=== PATIENT | female | born 1995 | race African-American/Black ===

== ENCOUNTER 2018-05-31 13:46 | Emergency (ER) | payer OTHER ==
[2018-05-31] MEDS: METOCLOPRAMIDE INJ 10MG/2ML VIAL (J2765) IV (16:09)
[2018-05-31] MEDS: NS 500 ML IV (16:09)
[2018-05-31] MEDS: DICYCLOMINE 10 MG CAP PO (16:16)
[2018-05-31] MEDS: GASTROGRAFIN SOLUTION 30ML PO ×2 (16:17→16:50)
[2018-05-31 16:23] LABS: BASO % 0.5 % (0.0-1.0); EOS # 0.1 10^3/uL (0.0-0.50); EOS % 1.1 % (0.0-3.0); HEMATOCRIT 37.7 % (36.0-47.0); HEMOGLOBIN 12.3 g/dl (12.0-15.5); IMMATURE GRANULOCYTE % 0.3 % (0-3.0); LYMPH # 2.1 10^3/uL (1.5-6.5); LYMPH % 27.6 % (24.0-44.0); MEAN CORPUSCULAR HEMOGLOBIN 25.2 pg (27.0-33.0); MEAN CORPUSCULAR HGB CONC 32.6 g/dl (32.0-36.5); MEAN CORPUSCULAR VOLUME 77.3 fl (80.0-96.0); MONO # 0.5 10^3/uL (0.0-0.8); MONO % 6.4 % (0.0-5.0); NEUTROPHILS # 4.9 10^3/uL (1.8-7.7); NEUTROPHILS % 64.1 % (36.0-66.0); PLATELET COUNT, AUTOMATED 240 10^3/uL (150-450); RED BLOOD COUNT 4.88 10^6/uL (4.00-5.40); RED CELL DISTRIBUTION WIDTH 15.7 % (11.5-14.5); WHITE BLOOD COUNT 7.6 10^3/uL (4.0-10.0)
[2018-05-31 16:32] LABS: APPEARANCE, URINE CLEAR (CLEAR); BACTERIA, URINE AUTO NEGATIVE (NEGATIVE); BILIRUBIN, URINE AUTO NEGATIVE (NEGATIVE); BLOOD, URINE BLOOD NEGATIVE (NEGATIVE); COLOR, URINE YELLOW (YELLOW); GLUCOSE, URINE (UA) AUTO NEGATIVE (NEGATIVE); KETONE, URINE AUTO NEGATIVE (NEGATIVE); LEUKOCYTE ESTERASE, URINE AUTO NEGATIVE (NEGATIVE); MUCUS, URINE SMALL (NEGATIVE); NITRITE, URINE AUTO NEGATIVE (NEGATIVE); PROTEIN, URINE AUTO NEGATIVE (NEGATIVE); RBC, URINE AUTO 1 /HPF (0-3); SPECIFIC GRAVITY URINE AUTO 1.012 (1.002-1.035); SQUAMOUS EPITHELIAL CELL UR AU 1 /HPF (0-6); UROBILINOGEN, URINE AUTO 0.2 mg/dL (0.0-2.0); WBC, URINE AUTO 1 /HPF (0-3)
[2018-05-31 16:54] LABS: ALBUMIN 3.7 GM/DL (3.2-5.2); ALBUMIN/GLOBULIN RATIO 1.12 (1.00-1.93); ALKALINE PHOSPHATASE 109 U/L (45-117); ALT/SGPT 17 U/L (12-78); AMYLASE 77 U/L (25-115); ANION GAP 8 MEQ/L (8-16); AST/SGOT 15 U/L (7-37); BILIRUBIN,TOTAL 0.2 MG/DL (0.2-1.0); BLOOD UREA NITROGEN 13 MG/DL (7-18); C REACTIVE PROTEIN QUANTITATIV < 0.30 MG/DL (0.00-0.30); CALCIUM LEVEL 8.9 MG/DL (8.5-10.1); CARBON DIOXIDE LEVEL 27 MEQ/L (21-32); CHLORIDE LEVEL 110 MEQ/L (98-107); CREATININE FOR GFR 0.98 MG/DL (0.55-1.30); GLOMERULAR FILTRATION RATE > 60.0 (>60); GLUCOSE, FASTING 80 MG/DL (70-100); LIPASE 106 U/L (73-393); POTASSIUM SERUM 4.1 MEQ/L (3.5-5.1); SODIUM LEVEL 145 MEQ/L (136-145)
[2018-05-31] MEDS ORDERED: ISOVUE-370 76% 100ML VIAL (Q9967) As Ordered (16:55)
== END 2018-05-31 18:14 | disposition home or self-care (01) ==
LOC: M ED 13:46
DX: R10.9 Unspecified abdominal pain (principal); L03.115 Cellulitis of right lower limb; Z88.0 Allergy status to penicillin
CPT/HCPCS: Q9963

== ENCOUNTER 2018-09-14 11:39 | Emergency (ER) | payer OTHER ==
[~2018-09-14] VITALS: Ht 165.1 cm; Wt 72.0 kg
[~2018-09-14 11:39] MED LIST: NAPR-885 PO
[2018-09-14] MEDS ORDERED: NS 1,000 ML IV SCH (12:10)
[2018-09-14] MEDS ORDERED: ISOVUE-370 76% 100ML VIAL (Q9967) As Ordered ONE (12:12)
[2018-09-14] MEDS ORDERED: ONDANSETRON 4MG/2ML VIAL (J2405) IV ONE (12:15)
[2018-09-14] MEDS ORDERED: MORPHINE 4 MG/ML 1ML VIAL/SYRINGE (J2270) IV PRN (12:15)
[2018-09-14 12:38] LABS: BASO % 0.6 % (0.0-1.0); EOS % 0.6 % (0.0-3.0); HEMATOCRIT 39.1 % (36.0-47.0); LYMPH # 1.4 10^3/uL (1.5-6.5); LYMPH % 21.6 % (24.0-44.0); MEAN CORPUSCULAR HEMOGLOBIN 25.7 pg (27.0-33.0); MEAN CORPUSCULAR HGB CONC 33.2 g/dl (32.0-36.5); MEAN CORPUSCULAR VOLUME 77.4 fl (80.0-96.0); MONO # 0.4 10^3/uL (0.0-0.8); NEUTROPHILS # 4.7 10^3/uL (1.8-7.7); NEUTROPHILS % 70.9 % (36.0-66.0); PLATELET COUNT, AUTOMATED 206 10^3/uL (150-450); RED BLOOD COUNT 5.05 10^6/uL (4.00-5.40); WHITE BLOOD COUNT 6.6 10^3/uL (4.0-10.0)
[2018-09-14 12:55] LABS: INR 1.06; PROTHROMBIN TIME 13.9 SECONDS (12.1-14.4)
[2018-09-14 12:56] LABS: PARTIAL THROMBOPLASTIN TIME 29.6 SECONDS (25.4-37.6)
[2018-09-14 13:05] LABS: HCG, SERUM QUALITATIVE NEGATIVE (NEGATIVE)
[2018-09-14 13:10] LABS: ALBUMIN 3.8 GM/DL (3.2-5.2); ALT/SGPT 14 U/L (12-78); BILIRUBIN,DIRECT 0.2 MG/DL (0.0-0.2); BILIRUBIN,TOTAL 0.5 MG/DL (0.2-1.0); BLOOD UREA NITROGEN 10 MG/DL (7-18); CALCIUM LEVEL 8.9 MG/DL (8.5-10.1); CARBON DIOXIDE LEVEL 25 MEQ/L (21-32); CHLORIDE LEVEL 109 MEQ/L (98-107); CREATININE FOR GFR 0.92 MG/DL (0.55-1.30); GLOMERULAR FILTRATION RATE > 60.0 (>60); GLUCOSE, FASTING 86 MG/DL (70-100); LIPASE 69 U/L (73-393); POTASSIUM SERUM 4.2 MEQ/L (3.5-5.1); SODIUM LEVEL 141 MEQ/L (136-145)
--- NOTE | 2018-09-14 13:49 | REP ---
CT CERVICAL SPINE: CT cervical spine was performed in the axial plane with saggital and coronal reconstruction images. There is no fracture or dislocation. Vertebral bodies are normal in height and are well aligned with normal cervical lordosis. There is no prevertebral soft tissue swelling. Disc spaces are well preserved. Spinal canal is adequate with no definite abnormal density within the spinal canal. IMPRESSION: No evidence of fracture or dislocation. Electronically Signed by Damian Michaels MD 09/14/2018 03:50 P
--- NOTE | 2018-09-14 13:50 | REP ---
Clinical: Trauma. Technique: Axial contrast enhanced images from the thoracic inlet to the upper abdomen with coronal and sagittal re-formations using 100 ml Isovue 370 intravenous contrast material. Findings: The bilateral lung escobedo are well-aerated and clear. No consolidation/contusion, pleural effusion, or pneumothorax. Tracheobronchial tree is patent. The mediastinum is normal and without evidence for injury. Thoracic aorta, pulmonary vasculature and heart/pericardium are intact and normal. No adenopathy. Surrounding osseous structures are intact. Impression: Normal contrast enhanced chest CT. No evidence for acute pathology or trauma/injury. Electronically Signed by Bryant Patrick MD 09/14/2018 01:42 P
--- NOTE | 2018-09-14 13:52 | REP ---
Clinical: Trauma. Technique: Axial contrast enhanced images from the lung bases to the pubic symphysis using 100 ml Isovue 370 intravenous contrast material with coronal and sagittal re-formations. Findings: Lung bases are clear. No evidence for solid organ injury. Liver, spleen, pancreas, gallbladder, bilateral adrenal glands and kidneys are normal. The enteric system is without obstruction or acute inflammatory process. Pelvis demonstrates normal bladder and age-appropriate uterus/adnexa. No free air. No free fluid. No adenopathy. Abdominal aorta and vasculature are intact and normal. Surrounding musculoskeletal structures without focal osseous abnormality or trauma/injury. Impression: Normal contrast enhanced CT of the abdomen and pelvis. No acute abdominopelvic pathology appreciated. No evidence for acute injury. Electronically Signed by Bryant Patrick MD 09/14/2018 01:44 P
--- NOTE | 2018-09-14 13:57 | REP ---
Clinical: Trauma. Technique: Axial noncontrast images through the thoracic spine with coronal and sagittal re-formations. Findings: Alignment and kyphosis maintained. Vertebral bodies are intact. There is no evidence for acute fracture / compression injury or subluxation. Posterior elements and spinous processes are intact. Neural foramen are patent. Spinal canal is normal. Paravertebral soft tissues are normal. Impression: Normal thoracic spine CT. No evidence for acute pathology or trauma/injury Electronically Signed by Bryant Patrick MD 09/14/2018 01:49 P
--- NOTE | 2018-09-14 13:59 | REP ---
CT BRAIN WITHOUT IV CONTRAST: CT brain performed without IV contrast. Ventricles are normal in size and position with no midline shift or mass effect. Michaels-white differentiation is well maintained. There is no acute intracranial hemorrhage or extra-axial fluid collection. No skull fracture is seen. The visualized paranasal sinuses and mastoid air cells are clear. IMPRESSION: Negative noncontrast CT brain. Electronically Signed by Damian Michaels MD 09/14/2018 03:51 P
--- NOTE | 2018-09-14 14:01 | REP ---
CT LUMBAR SPINE: CT lumbar spine performed in the axial plane with sagittal and coronal reconstruction images. There is no compression fracture or malalignment. There is normal lumbar lordosis. Disc spaces are well preserved. I do not see evidence of spinal stenosis. IMPRESSION: No fracture or dislocation. Electronically Signed by Damian Michaels MD 09/14/2018 03:51 P
--- NOTE | 2018-09-14 14:15 | REP ---
Clinical: Trauma. Technique: AP, lateral, bilateral oblique views left hand . Findings: The osseous structures and joint spaces are intact and normal. There is no evidence for acute fracture or dislocation. Surrounding soft tissues are unremarkable. No subcutaneous emphysema or radiodense foreign body. Impression: No acute fracture or dislocation. Electronically Signed by Bryant Patrick MD 09/14/2018 02:07 P
[2018-09-14 14:49] VITALS: BP 119/75
== END 2018-09-14 14:51 | disposition home or self-care (01) ==
LOC: EDBD 11:39 → M ED 11:39
DX: S20.212A Contusion of left front wall of thorax, initial encounter (principal); S60.222A Contusion of left hand, initial encounter; V49.49XA Driver injured in collision with other motor vehicles in traffic accident, initial encounter; Y92.410 Unspecified street and highway as the place of occurrence of the external cause; Z88.0 Allergy status to penicillin
CPT/HCPCS: 70450; 71260; 72125; 72128; 72131; 73130; 74177; 80048; 80076; 83690; 84703; 85025; 85610; 85730; 93041; 94760; 96361; 96374; 96375; 99284; J2270; J2405; Q9967

== ENCOUNTER 2018-10-02 17:34 | Emergency (ER) | payer OTHER ==
[~2018-10-02] VITALS: Ht 165.1 cm; Wt 72.7 kg
[2018-10-02 17:35] VITALS: BP 140/81
== END 2018-10-02 20:01 | disposition home or self-care (01) ==
LOC: M ED 17:34
DX: N64.4 Mastodynia (principal); Z80.3 Family history of malignant neoplasm of breast; Z88.0 Allergy status to penicillin; Z80.41 Family history of malignant neoplasm of ovary

== ENCOUNTER 2018-10-21 07:01 | Emergency (ER) | payer OTHER ==
[~2018-10-21] VITALS: Ht 165.1 cm; Wt 72.7 kg
[2018-10-21 07:01] VITALS: BP 128/72
[2018-10-21] MEDS ORDERED: ONDANSETRON 4 MG ORAL DISINTEGRATING TAB (Q0162 PER 1MG) PO ONE (07:30)
[2018-10-21] MEDS ORDERED: ONDA8TAB8 PO ×2 (09:40→09:47)
== END 2018-10-21 09:51 | disposition home or self-care (01) ==
LOC: M ED 07:01
DX: K52.9 Noninfective gastroenteritis and colitis, unspecified (principal); Z88.0 Allergy status to penicillin
CPT/HCPCS: 81025; 99283; Q0162

== ENCOUNTER → 2018-11-06 | Outpatient (CLI) | payer OTHER ==
[~2018-11-06] MED LIST changes: +ONDA8TAB8 PO
--- NOTE | 2018-11-06 17:04 | REP ---
LEFT BREAST MAMMOGRAM AND ULTRASOUND: Family history of breast cancer in paternal aunt at age 30. [facility]%. Patient has a history of prior infection in the upper outer quadrant of the left breast treated with antibiotics, now with pain and lump in that region. MLO and CC views of the left breast are performed without prior studies for comparison. There is heterogeneously dense breast parenchyma identified without evidence of a definite mass or architectural distortion. No clustered microcalcifications are seen. Real-time sonographic evaluation of the upper outer quadrant of the left breast was performed in the region of the palpable lump and pain. Dense fibroglandular tissue is seen at the 12 o'clock position. There is a hypoechoic nodule measuring 9 x 6 x 8 mm which is wider than tall. At 2 o'clock position a similar appearing nodule measures 9 x 7 x 4 mm. These findings are nonspecific but in this age group they may represent fibroadenomas. IMPRESSION: ACR 3 probably benign. Dense breast parenchymal limits the sensitivity of the mammogram. There is no definite mass or clustered microcalcifications seen on the left breast mammogram. By ultrasound in the upper outer quadrant in the region of the palpable lump and pain there are 2 subcentimeter hypoechoic nodules, one at 12 o'clock and one at 2 o'clock. Most likely these represent fibroadenomas. Recommend 6 month followup ultrasound of these two nodules in the upper outer quadrant of the left breast. BIRADS 3: BI-RADS/ACR category 3 mammogram. Probably Benign Findings. This mammogram was interpreted with the aid of an FDA-approved computer-aided detection system. The patient states she had a clinical breast exam in 10/2018. The patient letter being requested is M3. Electronically Signed by Damian Michaels MD 11/08/2018 10:00 A
== END ==
LOC: M RAD 14:21
PROVIDERS: ATTEND Clinical Nurse Specialist Psychiatric/Mental Health, Adult
DX: N64.4 Mastodynia (principal); N63.20 Unspecified lump in the left breast, unspecified quadrant

== ENCOUNTER 2018-12-02 02:53 | Emergency (ER) | payer OTHER ==
[~2018-12-02] VITALS: Ht 165.1 cm; Wt 72.7 kg
[2018-12-02 02:53] VITALS: BP 116/76
[2018-12-02] MEDS ORDERED: bcp PO (03:00)
== END 2018-12-02 04:05 | disposition left against medical advice (07) ==
LOC: M ED 02:53
DX: H57.10 Ocular pain, unspecified eye (principal); Z53.21 Procedure and treatment not carried out due to patient leaving prior to being seen by health care provider

== ENCOUNTER 2019-11-05 12:08 | Emergency (ER) | payer OTHER ==
[~2019-11-05] VITALS: Ht 165.1 cm; Wt 82.0 kg
[~2019-11-05 12:08] MED LIST changes: +bcp PO
[2019-11-05] MEDS ORDERED: ONDANSETRON 4MG/2ML VIAL (J2405) IV ONE (13:00)
[2019-11-05] MEDS ORDERED: KETOROLAC 30 MG/ML VIAL (J1885) IV ONE (13:00)
[2019-11-05] MEDS ORDERED: NS 1,000 ML IV ONE (13:00)
[2019-11-05 13:36] LABS: BASO % 0.4 % (0.0-1.0); EOS # 0.1 10^3/uL (0.0-0.5); EOS % 0.6 % (0.0-3.0); HEMATOCRIT 40.9 % (36.0-47.0); HEMOGLOBIN 13.4 g/dl (12.0-15.5); LYMPH % 22.9 % (24.0-44.0); MEAN CORPUSCULAR HEMOGLOBIN 25.9 pg (27.0-33.0); MEAN CORPUSCULAR HGB CONC 32.8 g/dl (32.0-36.5); MONO # 0.6 10^3/uL (0.0-0.8); MONO % 6.2 % (0.0-5.0); NEUTROPHILS # 6.2 10^3/uL (1.5-8.5); NEUTROPHILS % 69.8 % (36.0-66.0); PLATELET COUNT, AUTOMATED 257 10^3/uL (150-450); RED BLOOD COUNT 5.18 10^6/uL (4.00-5.40); WHITE BLOOD COUNT 8.9 10^3/uL (4.0-10.0)
--- NOTE | 2019-11-05 13:56 | REP ---
RIGHT UPPER QUADRANT ULTRASOUND: Real-time sonographic evaluation of the right upper quadrant performed. Gallbladder demonstrates no evidence of intraluminal sludge or calculi, wall thickening, or pericholecystic fluid. There is no intrahepatic or extrahepatic biliary dilatation, common bile duct measuring 4 mm. Liver and pancreas demonstrate homogeneous echotexture, with no gross mass. Right kidney demonstrates no hydronephrosis with normal size 10.1 cm in length. IMPRESSION: Negative right upper quadrant ultrasound. Electronically Signed by Damian Michaels MD 11/05/2019 02:50 P
[2019-11-05 14:05] LABS: ALBUMIN 4.1 GM/DL (3.2-5.2); ALT/SGPT 19 U/L (12-78); BILIRUBIN,DIRECT 0.1 MG/DL (0.0-0.2); BILIRUBIN,TOTAL 0.4 MG/DL (0.2-1.0); BLOOD UREA NITROGEN 10 MG/DL (7-18); CALCIUM LEVEL 9.5 MG/DL (8.5-10.1); CARBON DIOXIDE LEVEL 29 MEQ/L (21-32); CHLORIDE LEVEL 109 MEQ/L (98-107); CREATININE FOR GFR 0.99 MG/DL (0.55-1.30); GLOMERULAR FILTRATION RATE > 60.0 (>60); GLUCOSE, FASTING 78 MG/DL (70-100); LIPASE 80 U/L (73-393); POTASSIUM SERUM 4.1 MEQ/L (3.5-5.1); SODIUM LEVEL 141 MEQ/L (136-145); TOTAL PROTEIN 7.5 GM/DL (6.4-8.2)
[2019-11-05 14:16] LABS: HCG, SERUM QUALITATIVE NEGATIVE (NEGATIVE)
--- NOTE | 2019-11-05 15:00 | REP ---
Clinical: Of the lower chest and abdominal pain . Comparison: None . Technique: PA and lateral. Findings: The mediastinum and cardiac silhouette are normal. The lung escobedo are clear and without acute consolidation, effusion, or pneumothorax. The skeletal structures are intact and normal. Impression: 1. No acute cardiopulmonary process. Electronically Signed by Bryant Patrick MD 11/05/2019 02:52 P
[2019-11-05] MEDS ORDERED: BACT800T5 PO (15:24)
[2019-11-05 15:46] VITALS: BP 122/82
== END 2019-11-05 15:44 | disposition home or self-care (01) ==
LOC: M ED 12:08
DX: N39.0 Urinary tract infection, site not specified (principal); R07.9 Chest pain, unspecified; R11.2 Nausea with vomiting, unspecified; R19.7 Diarrhea, unspecified; R51 Headache; Z88.1 Allergy status to other antibiotic agents
CPT/HCPCS: 36415; 71046; 76705; 80048; 80076; 81001; 83690; 84703; 85025; 87086; 96361; 96374; 96375; 99284; J1885; J2405

== ENCOUNTER 2020-01-07 18:44 | Emergency (ER) | payer OTHER ==
[~2020-01-07] VITALS: Ht 165.1 cm; Wt 80.1 kg
[~2020-01-07 18:44] MED LIST changes: +BACT800T5 PO
[2020-01-07] MEDS ORDERED: SERO50TA4 PO (18:53)
[2020-01-07] MEDS ORDERED: NORCO, ANEXSIA 5/325MG TABLET (HYDROcodone/ACETAMINOPHEN) PO ONE (19:30)
[2020-01-07] MEDS ORDERED: BACITRACIN OINTMENT 30GM TUBE TOP STA (20:33)
[2020-01-07] MEDS ORDERED: HYDR-3713 PO (20:43)
[2020-01-07] MEDS ORDERED: BACI500O21 TOP (20:43)
[2020-01-07] MEDS ORDERED: NORCO 5/325MG TABLET (BULK FOR ED) PO ONE (20:45)
[2020-01-07 20:54] VITALS: BP 128/83
== END 2020-01-07 20:56 | disposition home or self-care (01) ==
LOC: M ED 18:44
DX: T20.00XA Burn of unspecified degree of head, face, and neck, unspecified site, initial encounter (principal); T23.001A Burn of unspecified degree of right hand, unspecified site, initial encounter; T23.002A Burn of unspecified degree of left hand, unspecified site, initial encounter; T22.051A Burn of unspecified degree of right shoulder, initial encounter; X08.8XXA Exposure to other specified smoke, fire and flames, initial encounter; Y92.018 Other place in single-family (private) house as the place of occurrence of the external cause; Z79.899 Other long term (current) drug therapy; Z88.0 Allergy status to penicillin

== ENCOUNTER → 2020-07-23 | Outpatient (CLI) | payer OTHER ==
[~2020-07-23] MED LIST changes: +BACI500O21 TOP; +HYDR-3713 PO; +SERO50TA4 PO
--- NOTE | 2020-07-28 08:44 | ECHO ---
DATE OF PROCEDURE: 07/23/2020 Age: 25 Gender: Female Height: 65 inches Weight: 191 pounds REFERRING PHYSICIAN: Rafael Mendoza M.D. INDICATION: Chest pain, unspecified. MEASUREMENTS: 2D Measurements: Left atrium 3.3 cm Left ventricle diastole 3.9 cm Intraventricular septum 1.11 cm Posterior wall 1.10 cm Aortic root 2.9 cm Inferior vena cava 1.2 cm (greater than 50% respiratory variation) Doppler Measurements: No aortic stenosis No aortic regurgitation Aortic valve velocity 120 cm/s LVOT velocity 92.8 cm/s LVOT VTI 19.1 cm Very mild mitral regurgitation Mitral E velocity 52.6 cm/s Mitral A velocity 33.7 cm/s Mitral deceleration time 88 msec No tricuspid regurgitation No pulmonic regurgitation Pulmonary artery systolic pressure 9 mmHg by pulmonary acceleration time. MITRAL ANNULAR TISSUE DOPPLER E prime septal 12.3 cm/s, E prime lateral 17.1 cm/s DESCRIPTION: Rhythm was sinus. Image quality was fair. No pericardial effusion. This was a 2D, M-mode, color flow Doppler, and pulsed wave Doppler examination including mitral annular tissue Doppler. CONCLUSIONS: 1. Normal left ventricle internal dimensions and wall thickness. Normal regional left ventricular (LV) wall motion and wall thickening. Normal left ventricular (LV) systolic function. Left ventricular ejection fraction (LVEF) 65%-70% by visual assessment. Normal left ventricular (LV) diastolic function. 2. Chordal systolic anterior motion. No systolic anterior motion of the mitral leaflets themselves. Very mild mitral regurgitation. 3. Otherwise normal appearing echocardiogram Doppler findings. MTDD
== END ==
LOC: M CARPUL 07:58
PROVIDERS: ATTEND Internal Medicine
DX: R07.9 Chest pain, unspecified (principal)

== ENCOUNTER 2020-09-10 09:30 | Emergency (ER) | payer OTHER ==
[~2020-09-10] VITALS: Ht 165.1 cm; Wt 90.5 kg
--- OUTSIDE RECORDS SUMMARY | 2020-09-10 09:37 | CCD | Continuity of Care Document ---
Author Author Collins RETANA M.D. Organization Unknown Address [address] [place] [id number] Phone [phone] Care Team Providers Care Patrol Commander Name Role Phone Vashti Méndez M.D. AUTM [phone] Problems Active Problems Provider Date Chronic tension-type headache Anay Retana M.D. Onset: 12/2019 Migraine without aura, not refractory Anay Retana M.D. On set: 06/19/2020 Disorders of initiating and maintaining sleep Caitlin Cruz Onset: 06/19/2020 Bilateral tinnitus Anay Retana M.D. Onset: 06/19/2020 Dizziness and giddiness Anay Retana M.D. Onset: 0 Social History Type Date Description Comments Sex Unknown Tobacco Use Start: Unknown Patient has never smoked Allergies, Adverse Reactions, Alerts Active Allergies Reaction Severity Comments Date Amoxicillin 06/19/2020 Medications Active Medications SIG Qnty Indications Ordering Provide r Date Zonisamide 50mg Capsules 1 by mouth every night at bedtime for 1 week, then 2 by mouth qhs. 60caps Anay Retana M.D. 06/19/2020 Rizatriptan Benzoate 10mg Tablets Dispers 1 by mouth at headache onset, may repeat once after 2 hrs. 9tabs Anay Retana M.D. 06/19/2020 Immunizations Description No Information Available Vital Signs Date Vital Result Comment 06/19/2020 10:22am BP Systolic 120 mmHg BP Diastolic 70 mmHg Heart Rate 84 /min Respiratory Rate 14 /min Height 65 inches 5'5" Weight 170.00 lb BMI (Body Mass Index) 28.3 kg/m2 [place] Body Weight 125 lb Results Description No Information Available Procedures Description No Information Available Medical Devices Description No Information Available Encounters Type Date Location Provider Dx Diagnosis Office Visit 06/19/2020 10:00a [facility] Caitlin Cruz G44.221 Chronic tension-type headache, intractable G43.009 Migraine w/o aura, not intra ctable, w/o status migrainosus F51.01 Primary insomnia H93.13 Tinnitus, bilateral R42 Dizziness and giddiness Assessments Date Code Description Provider 06/19/2020 G44.221 Chronic tension-type headache, i ntractable Anay Retana M.D. 06/19/2020 G43.009 Migraine without aur a, not intractable, without status migrainosus Anay Retana M.D. 06/19/2020 F51.01 Primary insomnia Kassy Cruz 06/19/2020 H93.13 Tinnitus, bilateral Anay Retana M.D. 06/19/2020 R42 Dizziness and giddiness Anay sandhu M.D. Plan of Treatment Future Appointment(s):* 08/14/2020 2:15 pm - Anay Retana M.D. at [facility] Functional Status Description No Information Available Mental Status Description No Information Available Referrals Description No Information Available
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
--- OUTSIDE RECORDS SUMMARY | 2020-09-10 09:37 | CCD | Continuity of Care Document ---
Author Author Collins RETANA M.D. Organization Unknown Address [address] [place] [address] Phone [phone] Problems Active Problems Provider Date Chronic tension-type [...] lb BMI (Body Mass Index) 28.3 kg/m2 [place] Body Weight 125 lb Results Description No Information Available Procedures Date Code Description Status 07/04/2020 65225 MRI Brain W/O Contrast Completed 07/04/2020 33580 MRI Brain W/O Contrast Completed 07/04/2020 82273 Magnetic Resonance Angiogtaphy H ead W/O Contrast Material(S) Completed 07/04/2020 95688 Magnetic Resonance Angiogtaphy H ead W/O Contrast Material(S) Completed Medical Devices Description No Information Available Encounters Type Date Location Provider Dx Diagnosis Office Visit 08/21/2020 2:00p [place] G44.221 Chronic tension-type headache, intractable G43.009 Migraine w/o aura, not intra ctable, w/o status migrainosus H93.13 Tinnitus, bilateral R42 Dizziness and giddiness F51.01 Primary insomnia Office Visit 06/19/2020 10:00a [place] G44.221 Chronic tension-type headache, intractable G43.009 Migraine w/o aura, not intra ctable, w/o status migrainosus F51.01 Primary insomnia H93.13 Tinnitus, bilateral R42 Dizziness and giddiness Assessments Date Code Description Provider 08/21/2020 G44.221 Chronic tension-type headache, i ntractable Anay Retana M.D. 08/21/2020 G43.009 Migraine without aur a, not intractable, without status migrainosus Anay Retana M.D. 08/21/2020 H93.13 Tinnitus, bilateral Anay Retana M.D. 08/21/2020 R42 Dizziness and giddiness Anay sandhu M.D. 08/21/2020 F51.01 Primary insomnia Kassy Cruz 07/04/2020 G44.221 Chronic tension-type headache, i ntractable Alexander Skelton M.D. 07/04/2020 G44.221 Chronic tension-type headache, i ntractable MRI 07/04/2020 G43.009 Migraine without aur a, not intractable, without status migrainosus Alexander Skelton M.D. 07/04/2020 G43.009 Migraine without aur a, not intractable, without status migrainosus MRI 07/04/2020 H93.13 Tinnitus, bilateral Alexanedr Skelton M.D. 07/04/2020 H93.13 Tinnitus, bilateral MRI 07/04/2020 R42 Dizziness and giddiness Alexander Davies M.D. 07/04/2020 R42 Dizziness and giddiness MRI 06/19/2020 G44.221 Chronic tension-type headache, i ntractable Anay Retana M.D. 06/19/2020 G43.009 Migraine without aur a, not intractable, without status migrainosus Anay Retana M.D. 06/19/2020 F51.01 Primary insomnia Kassy Cruz 06/19/2020 H93.13 Tinnitus, bilateral Anay Retana M.D. 06/19/2020 R42 Dizziness and giddiness Anay sandhu M.D. Plan of Treatment No Information Available Functional Status Description No Information Available Mental Status Description No Information Available Referrals Refer to Dr Reason for Referral Status Appt Date Anay Retana M.D. Created [facility] [address] [place] [address] [phone] Anay Retana M.D. Created [facility] [address] [place] [address] [phone]
--- OUTSIDE RECORDS SUMMARY | 2020-09-10 09:37 | CCD | Continuity of Care Document ---
Author Author Collins ARIAS Organization Unknown Address [address] [place] [address] Phone [phone] Problems Active Problems Provider Date Chronic tension-type [...] lb BMI (Body Mass Index) 28.3 kg/m2 [place] Body Weight 125 lb Results Description No Information Available Procedures Description No Information Available Medical Devices Description No Information Available Encounters Type Date Location Provider Dx Diagnosis Office Visit 06/19/2020 10:00a [place] G44.221 Chronic tension-type headache, intractable G43.009 [...] 2:15 pm - Anay Retana M.D. at Main office - [place] Functional Status Description No Information Available Mental Status Description No Information Available Referrals Refer to Dr Reason for Referral Status Appt Date Anay Retana M.D. Created [facility] [address] [place] [address] [phone]
--- OUTSIDE RECORDS SUMMARY | 2020-09-10 09:37 | CCD | Continuity of Care Document ---
Author Author Collins RETANA M.D. Organization Unknown Address [address] [place] [address] Phone [phone] Problems Active Problems Provider Date Chronic tension-type [...] lb BMI (Body Mass Index) 28.3 kg/m2 [place] Body Weight 125 lb Results Description No Information Available Procedures Date Code Description Status 07/04/2020 44780 MRI Brain W/O Contrast Completed 07/04/2020 04314 MRI Brain W/O Contrast Completed 07/04/2020 87894 Magnetic Resonance Angiogtaphy H ead W/O Contrast Material(S) Completed 07/04/2020 23846 Magnetic Resonance Angiogtaphy H ead W/O Contrast Material(S) Completed Medical Devices Description No Information Available Encounters Type Date Location Provider Dx Diagnosis Office Visit 08/21/2020 2:00p [place] G44.221 Chronic tension-type headache, intractable G43.009 Migraine w/o aura, not intra ctable, w/o status migrainosus H93.13 Tinnitus, bilateral R42 Dizziness and giddiness F51.01 Primary insomnia Office Visit 06/19/2020 10:00a [place] G44.221 Chronic tension-type headache, intractable G43.009 [...] status migrainosus MRI 07/04/2020 H93.13 Tinnitus, bilateral Alexander Skelton M.D. 07/04/2020 H93.13 Tinnitus, bilateral MRI [...] M.D. Created [facility] [address] [place] [address] [phone] Anay Retana M.D. Created [facility] [address] [place] [address] [phone]
--- OUTSIDE RECORDS SUMMARY | 2020-09-10 09:37 | CCD | Continuity of Care Document ---
Author Author Collins ARIAS Organization Unknown Address [address] [place] [address] Phone [phone] Problems Active Problems Provider Date Chronic tension-type [...] lb BMI (Body Mass Index) 28.3 kg/m2 [place] Body Weight 125 lb Results Description No Information Available Procedures Date Code Description Status 07/04/2020 56094 MRI Brain W/O Contrast Completed 07/04/2020 82673 MRI Brain W/O Contrast Completed 07/04/2020 29310 Magnetic Resonance Angiogtaphy H ead W/O Contrast Material(S) Completed 07/04/2020 68403 Magnetic Resonance Angiogtaphy H ead W/O Contrast Material(S) Completed Medical Devices Description No Information Available Encounters Type Date Location Provider Dx Diagnosis Office Visit 06/19/2020 10:00a Main office - [place] Caitlin Cruz G44.221 Chronic tension-type headache, intractable G43.009 Migraine w/o aura, not intra ctable, w/o status migrainosus F51.01 Primary insomnia H93.13 Tinnitus, bilateral R42 Dizziness and giddiness Assessments Date Code Description Provider 07/04/2020 G44.221 Chronic tension-type headache, i ntractable [...] Anay Retana M.D. at Main office - [place] Functional Status Description No Information Available Mental Status Description No Information Available Referrals Refer to Dr Reason for Referral Status Appt Date Anay Retana M.D. Created [facility] [address] [place], [place] [id number] [phone] Anay Retana M.D. Created [facility] [address] [place] [address] [phone]
[2020-09-10] MEDS ORDERED: ZONI50CA11 PO (09:46)
[2020-09-10] MEDS ORDERED: JOLETAB PO (09:46)
[2020-09-10] MEDS ORDERED: VENL37.598 (09:46)
[2020-09-10] MEDS ORDERED: QUET25TA3 PO (09:46)
[2020-09-10] MEDS ORDERED: RIZA10TA58 PO (09:46)
[2020-09-10] MEDS ORDERED: CELE1CAP7 (09:46)
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
[2020-09-10] MEDS ORDERED: NS 1,000 ML IV ONE (10:30)
[2020-09-10 11:03] LABS: BASO % 0.4 % (0.0-1.0); EOS # 0.1 10^3/uL (0.0-0.5); EOS % 0.6 % (0.0-3.0); HEMATOCRIT 39.5 % (36.0-47.0); HEMOGLOBIN 12.8 g/dl (12.0-15.5); LYMPH # 1.9 10^3/uL (1.5-5.0); MEAN CORPUSCULAR HEMOGLOBIN 25.2 pg (27.0-33.0); MEAN CORPUSCULAR HGB CONC 32.4 g/dl (32.0-36.5); MEAN CORPUSCULAR VOLUME 77.9 fl (80.0-96.0); MONO # 0.5 10^3/uL (0.0-0.8); NEUTROPHILS # 5.2 10^3/uL (1.5-8.5); NEUTROPHILS % 67.7 % (36.0-66.0); PLATELET COUNT, AUTOMATED 255 10^3/uL (150-450); RED BLOOD COUNT 5.07 10^6/uL (4.00-5.40); WHITE BLOOD COUNT 7.7 10^3/uL (4.0-10.0)
--- NOTE | 2020-09-10 11:06 | REP ---
INDICATION: sob, tachycardia COMPARISON: 11/05/2019 TECHNIQUE: Portable AP view of the chest FINDINGS: The mediastinum and cardiac silhouette are stable and within normal limits for portable technique. The lung escobedo are clear without acute consolidation, effusion, or pneumothorax. Skeletal structures are intact. IMPRESSION: No acute cardiopulmonary process appreciated. <Electronically signed by Bryant Patrick > 09/10/20 1100
[2020-09-10 11:31] LABS: ALBUMIN 3.7 GM/DL (3.2-5.2); ALT/SGPT 18 U/L (12-78); BILIRUBIN,DIRECT 0.1 MG/DL (0.0-0.2); BILIRUBIN,TOTAL 0.3 MG/DL (0.2-1.0); BLOOD UREA NITROGEN 10 MG/DL (7-18); CALCIUM LEVEL 9.6 MG/DL (8.5-10.1); CARBON DIOXIDE LEVEL 26 MEQ/L (21-32); CHLORIDE LEVEL 110 MEQ/L (98-107); CREATININE FOR GFR 1.12 MG/DL (0.55-1.30); GLOMERULAR FILTRATION RATE > 60.0 (>60); GLUCOSE, FASTING 84 MG/DL (70-100); SODIUM LEVEL 143 MEQ/L (136-145); TOTAL PROTEIN 7.4 GM/DL (6.4-8.2)
[2020-09-10] MEDS ORDERED: ISOVUE-370 76% 100ML VIAL As Ordered ONE (12:26)
--- NOTE | 2020-09-10 13:28 | REP ---
INDICATION: sob + d-dimer. COMPARISON: Comparison chest CT study 14 September 2018.. TECHNIQUE: Contrast dose: 100 ML of Isovue [address] technique: Helical scanning is acquired and overlapping 1.5 mm and contiguous 3 mm axial images are reformatted. In addition, maximum intensity projection and multiplanar re-formation images are generated in sagittal and coronal imaging projections. FINDINGS: There is good opacification in the pulmonary arterial tree. There is no evidence of vessel cut off or filling defect to suggest pulmonary embolus. Homogeneous opacity is seen in the thoracic aorta. There is no evidence of aneurysm or dissection. Lung window settings demonstrate show no evidence of pulmonary infiltrate, mass, atelectasis or nodule. No pleural or pericardial effusion is seen. There is no evidence of hilar or mediastinal mass or adenopathy. In In the upper abdomen, adrenal glands are normal. The upper abdominal structures are unremarkable. No bony destructive lesion. IMPRESSION: No CT evidence of pulmonary embolus. No active cardiopulmonary disease. <Electronically signed by Mike Smith > 09/10/20 3556
[2020-09-10] MEDS ORDERED: PROM25TA12 PO (13:47)
[2020-09-10 14:03] VITALS: BP 129/83
== END 2020-09-10 14:05 | disposition home or self-care (01) ==
LOC: M ED 09:30
DX: N93.9 Abnormal uterine and vaginal bleeding, unspecified (principal); R11.2 Nausea with vomiting, unspecified; R19.7 Diarrhea, unspecified; Z88.1 Allergy status to other antibiotic agents
CPT/HCPCS: 36415; 71045; 71275; 80048; 80076; 84702; 85025; 85379; 87880; 96360; 99284; Q9967; U0002

== ENCOUNTER → 2020-10-03 | Outpatient (REF) | payer OTHER ==
[~2020-10-03] MED LIST changes: +CELE1CAP7; +JOLETAB PO; +PROM25TA12 PO; +QUET25TA3 PO; +RIZA10TA58 PO; +VENL37.598; +ZONI50CA11 PO
[2020-10-03 13:31] LABS: APPEARANCE, URINE CLEAR (CLEAR); BACTERIA, URINE AUTO NEGATIVE (NEGATIVE); BILIRUBIN, URINE AUTO NEGATIVE (NEGATIVE); BLOOD, URINE BLOOD NEGATIVE (NEGATIVE); COLOR, URINE STRAW (YELLOW); GLUCOSE, URINE (UA) AUTO NEGATIVE (NEGATIVE); KETONE, URINE AUTO NEGATIVE (NEGATIVE); LEUKOCYTE ESTERASE, URINE AUTO NEGATIVE (NEGATIVE); NITRITE, URINE AUTO NEGATIVE (NEGATIVE); PROTEIN, URINE AUTO NEGATIVE (NEGATIVE); RBC, URINE AUTO 0 /HPF (0-3); SPECIFIC GRAVITY URINE AUTO 1.006 (1.002-1.035); SQUAMOUS EPITHELIAL CELL UR AU 1 /HPF (0-6); UROBILINOGEN, URINE AUTO 0.2 mg/dL (0.0-2.0); WBC, URINE AUTO 0 /HPF (0-3)
== END ==
LOC: M LAB REF 12:40
PROVIDERS: ATTEND Physician Assistant
DX: R10.9 Unspecified abdominal pain (principal)

== ENCOUNTER → 2020-10-28 | Outpatient (CLI) | payer OTHER ==
[~2020-10-28] MED LIST changes: +GASTROGRAFIN SOLUTION 30ML (Q9963) As Ordered ONE; +ISOVUE-370 76% 100ML VIAL As Ordered ONE
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
== END ==
LOC: M RAD 14:31
PROVIDERS: ATTEND Nurse Practitioner
DX: R10.2 Pelvic and perineal pain (principal)
CPT/HCPCS: 74178; Q9963; Q9967

== ENCOUNTER 2021-02-23 12:08 | Emergency (ER) | payer OTHER ==
[~2021-02-23] VITALS: Ht 165.1 cm; Wt 90.3 kg
[~2021-02-23 12:08] MED LIST changes: -GASTROGRAFIN SOLUTION 30ML (Q9963) As Ordered ONE; -ISOVUE-370 76% 100ML VIAL As Ordered ONE
[2021-02-23] MEDS ORDERED: MULTIVITAMIN -ADULT INJECTION 10 ML, THIAMINE INJection 100 MG, FOLIC ACID 1 MG in NS 1... IV ONE (13:55)
[2021-02-23] MEDS ORDERED: ONDANSETRON 4MG/2ML VIAL IV ONE (13:55)
[2021-02-23 14:34] LABS: BASO % 0.3 % (0.0-1.0); EOS % 0.3 % (0.0-3.0); HEMATOCRIT 41.4 % (36.0-47.0); HEMOGLOBIN 13.6 g/dl (12.0-15.5); LYMPH % 17.1 % (24.0-44.0); MEAN CORPUSCULAR HEMOGLOBIN 25.6 pg (27.0-33.0); MEAN CORPUSCULAR HGB CONC 32.9 g/dl (32.0-36.5); MEAN CORPUSCULAR VOLUME 77.8 fl (80.0-96.0); MONO # 0.7 10^3/uL (0.0-0.8); MONO % 5.9 % (2.0-8.0); NEUTROPHILS % 76.1 % (36.0-66.0); PLATELET COUNT, AUTOMATED 236 10^3/uL (150-450); RED BLOOD COUNT 5.32 10^6/uL (4.00-5.40); WHITE BLOOD COUNT 11.8 10^3/uL (4.0-10.0)
[2021-02-23 15:11] LABS: ALBUMIN 3.8 GM/DL (3.2-5.2); BILIRUBIN,DIRECT 0.1 MG/DL (0.0-0.2); BILIRUBIN,TOTAL 0.4 MG/DL (0.2-1.0); TOTAL PROTEIN 7.6 GM/DL (6.4-8.2)
[2021-02-23] MEDS ORDERED: ZOFR4TAB16 PO (16:36)
[2021-02-23] MEDS ORDERED: MACR100C43 PO (16:36)
[2021-02-23 17:02] VITALS: BP 121/70
== END 2021-02-23 17:09 | disposition home or self-care (01) ==
LOC: M ED 15:02
DX: O23.41 Unspecified infection of urinary tract in pregnancy, first trimester (principal); Z3A.11 11 weeks gestation of pregnancy; O99.341 Other mental disorders complicating pregnancy, first trimester; F41.9 Anxiety disorder, unspecified; Z88.0 Allergy status to penicillin
CPT/HCPCS: 80047; 80076; 81001; 83690; 84702; 85025; 87088; 87186; 96361; 96374; 99284; J2405; J3411

== ENCOUNTER → 2021-03-10 | Outpatient (CLI) | payer OTHER ==
[~2021-03-10] MED LIST changes: +MACR100C43 PO; +ZOFR4TAB16 PO
[2021-03-10 14:04] LABS: BASO % 0.2 % (0.0-1.0); EOS % 0.3 % (0.0-3.0); HEMATOCRIT 38.8 % (36.0-47.0); LYMPH # 1.5 10^3/uL (1.5-5.0); LYMPH % 13.5 % (24.0-44.0); MEAN CORPUSCULAR HEMOGLOBIN 26.3 pg (27.0-33.0); MEAN CORPUSCULAR HGB CONC 33.5 g/dl (32.0-36.5); MEAN CORPUSCULAR VOLUME 78.4 fl (80.0-96.0); MONO # 0.5 10^3/uL (0.0-0.8); MONO % 4.4 % (2.0-8.0); NEUTROPHILS # 9.1 10^3/uL (1.5-8.5); NEUTROPHILS % 81.2 % (36.0-66.0); PLATELET COUNT, AUTOMATED 225 10^3/uL (150-450); RED BLOOD COUNT 4.95 10^6/uL (4.00-5.40); WHITE BLOOD COUNT 11.2 10^3/uL (4.0-10.0)
[2021-03-10 14:52] LABS: HEMOGLOBIN A1c 5.1 %
[2021-03-10 15:43] LABS: GC DNA AMPLIFICATION NEGATIVE (NEGATIVE)
[2021-03-10 15:55] LABS: SICKLE CELL SCREEN POSITIVE (NEGATIVE)
[2021-03-11 20:13] LABS: HIV 1&2 SCREEN CENTAUR NEGATIVE (NEGATIVE)
== END ==
LOC: M PLALAB 10:42
PROVIDERS: ATTEND Advanced Practice Midwife
DX: Z34.81 Encounter for supervision of other normal pregnancy, first trimester (principal); Z3A.13 13 weeks gestation of pregnancy

== ENCOUNTER → 2021-03-18 | Outpatient (CLI) | payer OTHER ==
[~2021-03-18] MED LIST changes: +QUET1TAB17 PO; -QUET25TA3 PO
--- NOTE | 2021-04-07 10:51 | REP ---
INDICATION: CONFIRM DATING COMPARISON: None. TECHNIQUE: Transabdominal 1st trimester obstetrical ultrasound with color Doppler evaluation. FINDINGS: Single live early intrauterine is appreciated. Biometrical measurements correspond to 14 weeks 3 days gestational age with estimated date of delivery 09/13/2021. heart rate equals 165 beats per minute. Placenta identified posteriorly and grade 0. Cervix measures 3.8 cm in length and appears closed. IMPRESSION: Single live early intrauterine at 14 weeks 3 days gestational age. Complete anatomical assessment should be performed and 19-20 weeks. <Electronically signed by Bryant Patrick > 04/07/21 [id number]
== END ==
LOC: M WHC 13:33
PROVIDERS: ATTEND Advanced Practice Midwife
DX: Z34.01 Encounter for supervision of normal first pregnancy, first trimester (principal); Z3A.14 14 weeks gestation of pregnancy

== ENCOUNTER → 2021-04-29 | Outpatient (REF) | payer OTHER | LOC: M SFHCWAGY 12:53 | PROVIDERS: ATTEND Specialist | DX: Z34.02 Encounter for supervision of normal first pregnancy, second trimester (principal); Z3A.00 Weeks of gestation of pregnancy not specified ==